=== PATIENT | male | born 1955 | race Caucasian/White ===

== ENCOUNTER → 2018-04-21 | Outpatient (CLI) | payer BC ==
[~2018-04-21] MED LIST: ACET-1138 PO; ASPI-320 PO; B-CO-25 PO; CALC1TAB27 PO; CHOL1000 PO; CLB100 PO; DIPH1LIQ PO; LEVO75TA5 PO; OMEG10007 PO; OMEP20CA9 PO; RXC5 PO; SNK PO; ZYR10 PO
== END | disposition home or self-care (01) ==
LOC: C.CPL 13:09
PROVIDERS: ATTEND Family Medicine
DX: S83.241A Other tear of medial meniscus, current injury, right knee, initial encounter (principal); X58.XXXA Exposure to other specified factors, initial encounter

== ENCOUNTER 2019-06-04 05:08 | Observation (INO) ==
--- NOTE | 2019-05-28 16:29 | PAT Medication Instructions ---
Medication Instructions Date of Service May 28, 2019 Home Medications B-complex with vitamin C [Super B Complex-Vitamin C] 2 tab PO QAM calcium carbonate [Tums] 200 mg PO BID PRN cholecalciferol (vitamin D3) [Vitamin D3] 5,000 unit PO QAM dutasteride 0.5 mg PO QAM levothyroxine 50 mcg PO QAM meloxicam 15 mg PO QAM multivitamin 1 tab PO QAM omeprazole 20 mg PO DAILY PRN tamsulosin 0.4 mg PO HS ASK your surgeon for instructions meloxicam 15 mg PO QAM DO NOT take the morning of surgery B-complex with vitamin C [Super B Complex-Vitamin C] 2 tab PO QAM calcium carbonate [Tums] 200 mg PO BID PRN cholecalciferol (vitamin D3) [Vitamin D3] 5,000 unit PO QAM multivitamin 1 tab PO QAM Take morning of surgery With a small sip of water, OTHERWISE NOTHING TO EAT OR DRINK AFTER MIDNIGHT: dutasteride 0.5 mg PO QAM levothyroxine 50 mcg PO QAM omeprazole 20 mg PO DAILY PRN (if needed) Take evening before surgery calcium carbonate [Tums] 200 mg PO BID PRN (if needed) tamsulosin 0.4 mg PO HS Other Notes If you have any questions please call us at [phone] or [phone] or [phone] or [phone]
--- NOTE | 2019-05-29 09:20 | Anesthesiology Consultation ---
Date of Service May 29, 2019 Assessment & Plan (1) Encounter for pre-operative examination: Chart Review Chart Review: Pending: Refer to Additional Notes / Consult section (pending preop testing (labs, EKG, CXR)) and Patient seen in Pre Admission Testing Teaching & Discussion Pre-Anesthesia Teaching/Discussion Notes: Instructed NPO after midnight before surgery,except medications with 15 cc of water. Medication instructions prov ided according to the PAT guidelines. History Surgery Operation Date: 06/04/19 09:45 Proposed Procedures p Transurethral Resection of Prostate - Rm Miles MD Height/Weight Height: 6 ft 1 in Weight: 121.8 kg Allergies Allergy/AdvReac Type Severity Reaction Status Date / Time No Known Allergies Allergy Verified 05/25/19 11:23 Medications Home Medications Medication Instructions Recorded Confirmed Last Taken B-complex with vitamin C [Super B 2 tab PO QAM 05/25/19 05/25/19 Unknown Complex-Vitamin C] calcium carbonate [Tums] 200 mg PO BID PRN 05/25/19 05/25/19 Unknown cholecalciferol (vitamin D3) 5,000 unit PO QAM 05/25/19 05/25/19 Unknown [Vitamin D3] dutasteride 0.5 mg PO QAM 05/25/19 05/25/19 Unknown levothyroxine 50 mcg PO QAM 05/25/19 05/25/19 Unknown meloxicam 15 mg PO QAM 05/25/19 05/25/19 Unknown multivitamin 1 tab PO QAM 05/25/19 05/25/19 Unknown omeprazole 20 mg PO DAILY PRN 05/25/19 05/25/19 Unknown tamsulosin 0.4 mg PO HS 05/25/19 05/25/19 Unknown Past Medical History Medical History BPH (benign prostatic hyperplasia) GERD (gastroesophageal reflux disease) rare breakthrough Hiatal hernia Hypothyroidism Obesity Osteoarthritis Restless leg syndrome Exercise / Class Metabolic Activity II 4-5 Yardwork/Stairs/Walk up hill Past Family History Family History Father Family hx of colon cancer Grandfather (Paternal) Family hx of colon cancer Past Surgical History Surgical History History of arthroscopy RT KNEE History of cardiac cath 1993/NO STENTS History of colonoscopy History of esophagogastroduodenoscopy (EGD) History of tooth extraction History of total hip arthroplasty LEFT Past Anesthesia History No Hx of Anesthesia Complications and No Family Hx of Anesthesia Complications (limited knowledge of family hx) History of PONV No Hx of PONV and No Hx of Motion Sickness Social History Smoking Status: Former smoker tobacco type: cigarettes and smokeless tobacco Do You Dip or Chew Tobacco: Yes (2 CANS/WEEK- ADVISED NPO AM DOS) Smoking End Date: QUIT 20 YEARS AGO Hx Alcohol Use: Yes Alcohol type: beer alcohol intake frequency: a few times a month Hx Substance Use: No substance use type: does not use Review of Systems Rare reflux breakthrough. Patient denies chest pain, shortness of breath, dyspnea on exertion, cough, wheezing, palpitations. Physical Exam Vital Signs VITALS BP 134/89 P 61 TEMP 97.9 SP02 96%RA RESP 18 PHYSICAL Full neck and c-spine range of motion. Full TMJ range of motion. TMD 2.5 finger breaths Mallampati Score 2 Dentition: several missing teeth including upper front sides, poor dentition, several chipped Lungs: clear throughout to auscultation Cardiac: regular rate and rhythm, no murmurs noted Spine: normal Carotid arteries: negative bruit Extremities: no edema
--- NOTE | 2019-05-29 10:27 | XRay Report ---
XR chest Pre-admission PA/Lat CLINICAL HISTORY: Preoperative evaluation. COMPARISON STUDY: Chest radiograph June 29, 2016. FINDINGS: Lung volumes are normal. Lungs are clear. There is no pneumothorax or pleural effusion. Bor derline cardiomegaly is noted. Mediastinal contours are normal. There is no evidence for pulmonary ed jose alejandro. IMPRESSION: No acute cardiopulmonary findings. Electronically signed by: Josse Hernández M.D. 05/29/2019 10:26 AM
[2019-05-29 11:47] LABS: Basophils # (auto) 0.01 K/uL (0-0.2); Basophils % (auto) 0.1 %; Eosinophils # (auto) 0.14 K/uL (0-0.5); Eosinophils % (auto) 1.8 %; Hematocrit (blood only) 47.6 % (42-52); Hemoglobin 16.5 g/dL (14.0-18.0); Immature Granulocytes # (auto) 0.02 K/uL (0.00-0.02); Immature Granulocytes % (auto) 0.3 %; Lymphocytes # (auto) 1.33 K/uL (1.2-3.4); Lymphocytes % (auto) 17.1 %; Mean Corpuscular Hgb Conc 34.7 g/dL (32-36); Mean Corpuscular Volume 95.2 fL (80-100); Mean Platelet Volume 9.8 fL (7.4-10.4); Monocytes # (auto) 0.46 K/uL (0.11-0.59); Monocytes % (auto) 5.9 %; Neutrophils # (auto) 5.84 K/uL (1.4-6.5); Neutrophils % (auto) 74.8 %; Platelet Count 232 K/uL (130-400); RDW Standard Deviation 44.9 fL (36.4-46.3)
[2019-05-29 11:49] LABS: Appearance Urine Clear (Clear); Bilirubin Urine Negative (Negative); Blood Urine Negative (Negative); Color Urine Dark Yellow; Glucose Urine UA Negative (Negative); Ketones Urine Negative (Negative); Leukocyte Esterase Urine Negative (Negative); Nitrite Urine Negative (Negative); Protein Urine Negative (Negative); Specific Gravity Urine 1.021 (1.000-1.030); Urobilinogen Urine Negative (Negative)
[2019-05-29 11:54] LABS: BUN Creatinine Ratio 18.7 (10-20); Calcium 8.8 mg/dl (8.5-10.1); Est GFR (African American) 90.7; Est GFR (Non-African American) 78.2; Potassium 4.4 mmol/L (3.5-5.1)
[2019-06-04] MEDS ORDERED: LR 15ML/HR IV SCH (06:00)
[2019-06-04] MEDS ORDERED: CIPROFLOXACIN 400 MG/200 ML BAG IV SCH (06:00)
[2019-06-04] MEDS ORDERED: PROPOFOL IV EMULSION 10 MG/ML 20 ML VIAL IV ONE (06:32)
[2019-06-04] MEDS ORDERED: ONDANSETRON INJ 2 MG/ML 2 ML VIAL ONE (06:32)
[2019-06-04] MEDS ORDERED: LIDOCAINE HCL 2% 2 ML VIAL/AMP(20MG/ML) INFIL ONE (06:32)
[2019-06-04] MEDS ORDERED: MIDAZOLAM HCL 1 MG/ML 2ML VIAL ONE (06:32)
[2019-06-04] MEDS ORDERED: fentaNYL citrate 100 MCG/2 ML VIAL ONE (06:32)
--- NOTE | 2019-06-04 07:14 | History & Physical Bridge Note ---
Date of Service June 04, 2019 History & Physical Bridge Note I have examined the patient, reviewed the History & Physical and in the interval since the performance of the History & Physical I have noted the following changes of clinical significance: no changes noted
[2019-06-04] MEDS ORDERED: ONDANSETRON INJ 2 MG/ML 2 ML VIAL IV PRN ×2 (07:17→09:10)
[2019-06-04] MEDS ORDERED: fentaNYL citrate 100 MCG/2 ML VIAL IV PRN (07:17)
[2019-06-04] MEDS ORDERED: HYDROmorphone INJ 2 MG/ML SYR/VIAL IV PRN (07:17)
[2019-06-04] MEDS ORDERED: ePHEDrine sulfate 50 MG/ML AMP IV PRN (07:17)
[2019-06-04] MEDS ORDERED: METOCLOPRAMIDE HCL INJ 5 MG/ML 2 ML VIAL IV PRN (07:17)
[2019-06-04] MEDS ORDERED: ATROPINE SULFATE 0.1 MG/ML 10ML SYR IV PRN (07:17)
[2019-06-04] MEDS ORDERED: PROMETHAZINE HCL 12.5 MG in SODIUM CHLORIDE 0.9% 50 ML IV PRN (07:17)
--- NOTE | 2019-06-04 08:24 | Operative Report ---
Post Operative Report Pre & Post Diagnosis Operation Date: 06/04/19 07:15 Pre-Op Diagnosis: Benign Prostatic Hyperplasia with Urinary Obstruct Post-Op Diagnosis: Benign Prostatic Hyperplasia with Urinary Obstruct Procedure Operation Date: 06/04/19 07:15 Actual Procedures p Transurethral Resection of Prostate, Cystoscopy (Not Applicable) - Rm Miles MD Surgeon Karl Miles MD Drag Sawyer none Estimated Blood Loss 5 Findings Consistent with Post-Op Diagnosis Specimens none Description of Procedure The patient was identified in the preopertive holding area, appropriate informed consents were reviewed and completed and the patient was transferred to the operative suite. Upon arrival, appropriate antibiotics and anesthesia were administered and the patient was placed in dorsal lithotomy position and prepped and draped in sterile fashion. To begin the case I passed a 27 Burkinan resectoscope and 30 degree lens with visual pig machine operator. Inspection revealed lateral lobe hypertrophy, high bladder neck and small intravesical component of the prostate. Ureteral orifices were identified within the bladder in orthotopic position. There were no mucosal abnormalities of the bladder. Following my inspection I exchanged the visual pig machine operator for resecting element using a button electrode. I began by making incisions in the bladder neck at 5 and 7:00 with care to avoid encroachment upon the UOs. I then resected the tissue between these 2 incisions flattening the bladder neck. This drastically improve the appearance of the prostate. I then completed my resection by trimming the left and right lateral lobes until he had a widely patent prostatic fossa. The anterior aspect of the prostate was somewhat redundant and drooping into our field and I resected that area before concluding the case. Hemostasis was excellent. A 20 Bur[place]an [place] catheter was inserted without difficulty. Patient was extubated and taken to the PACU in stable condition. There were no complications. I attest to the content of the Intraoperative Record and any orders documented therein. Any exceptions are noted below.
--- NOTE | 2019-06-04 08:58 | Anesthesiology Progress Note ---
Date of Service June 04, 2019 Anesthesia Post Procedure Vital Signs Vital Signs: Temp Pulse Pulse Resp BP BP Pulse Ox 06/04/19 08:50 36.3 C L 66 17 129/96 96 06/04/19 08:40 69 18 144/99 H 98 06/04/19 08:30 73 18 132/99 97 06/04/19 08:20 71 18 136/98 99 06/04/19 08:12 36.2 C L 75 18 127/97 93 06/04/19 05:41 36.6 C 76 18 139/98 96 Pain Intensity Bilateral Knee: Pain Intensity: 1 Transfer of Care Handoff Completed per policy Notes Mental Status: alert / awake / arousable and participated in evaluation Patient Amnestic to Procedure: Yes Nausea / Vomiting: adequately controlled Pain: adequately controlled Airway Patency, RR, SpO2: stable & adequate BP & HR: stable & adequate Hydration State: stable & adequate Anesthetic Complications: no major complications apparent
[2019-06-04] MEDS ORDERED: CALCIUM CARBONATE 500 MG CHEWABLE TAB PO PRN (09:10)
[2019-06-04] MEDS ORDERED: MoRPHine SULFATE 10 MG/ML CARP/VIAL IV PRN (09:10)
[2019-06-04] MEDS ORDERED: ACETAMINOPHEN 1,000 MG/100 ML VIAL IV PRN (09:10)
[2019-06-04] MEDS ORDERED: OXYCODONE HCL IR 5 MG TAB (IMMEDIATE RELEASE) PO PRN ×2 (09:10)
[2019-06-04] MEDS ORDERED: MoRPHine SULFATE 4 MG/ML 1 ML CARP\\VIAL IV PRN (09:10)
[2019-06-04] MEDS: LACTATED RINGER'S 1,000 ML IV SCH (09:38)
[2019-06-04] MEDS: MULTIVITAMIN TAB PO SCH (11:11)
[2019-06-04] MEDS: PANTOprazole 40 MG TAB PO SCH (11:11)
[2019-06-04] MEDS: LEVOTHYROXINE SODIUM 50 MCG TABLET PO SCH (11:12)
[2019-06-04] MEDS: DOCUSATE SODIUM 100 MG CAP PO SCH ×2 (11:12→20:56)
[2019-06-04] MEDS: CHOLECALCIFEROL 1,000 UNITS TAB PO SCH (11:12)
[2019-06-04] MEDS: VITAMIN B COMPLEX TAB PO SCH (11:12)
[2019-06-04] MEDS: DUTASTERIDE 0.5 MG SCH (17:06)
[2019-06-04] MEDS: CIPROFLOXACIN 400 MG/200 ML BAG IV SCH (19:57)
[2019-06-04] MEDS ORDERED: TAMSULOSIN HCL 0.4 MG CAP PO SCH (21:00)
[2019-06-05] MEDS: DUTASTERIDE 0.5 MG SCH ×2 (00:17→08:24)
[2019-06-05] MEDS: LACTATED RINGER'S 1,000 ML IV SCH (02:31)
[2019-06-05] MEDS: LEVOTHYROXINE SODIUM 50 MCG TABLET PO SCH (05:39)
[2019-06-05 05:58] LABS: Basophils # (auto) 0.01 K/uL (0-0.2); Basophils % (auto) 0.1 %; Eosinophils # (auto) 0.18 K/uL (0-0.5); Hematocrit (blood only) 44.3 % (42-52); Hemoglobin 15.3 g/dL (14.0-18.0); Immature Granulocytes # (auto) 0.02 K/uL (0.00-0.02); Immature Granulocytes % (auto) 0.2 %; Lymphocytes # (auto) 1.18 K/uL (1.2-3.4); Lymphocytes % (auto) 13.4 %; Mean Corpuscular Hemoglobin 32.4 pg (25-34); Mean Corpuscular Hgb Conc 34.5 g/dL (32-36); Mean Corpuscular Volume 93.9 fL (80-100); Mean Platelet Volume 9.5 fL (7.4-10.4); Monocytes # (auto) 0.67 K/uL (0.11-0.59); Monocytes % (auto) 7.6 %; Neutrophils # (auto) 6.73 K/uL (1.4-6.5); Neutrophils % (auto) 76.7 %; Platelet Count 190 K/uL (130-400); RDW Coefficient of Variation 12.8 % (11.5-14.5); RDW Standard Deviation 44.1 fL (36.4-46.3); Red Blood Count 4.72 M/uL (4.7-6.1); White Blood Count 8.79 K/uL (4.8-10.8)
[2019-06-05] MEDS: CIPROFLOXACIN 400 MG/200 ML BAG IV SCH (06:04)
[2019-06-05 06:28] LABS: BUN Creatinine Ratio 14.3 (10-20); Calcium 8.3 mg/dl (8.5-10.1); Creatinine Clr Calc Pharmacy 92.5 ml/min; Est GFR (African American) 81.8; Est GFR (Non-African American) 70.6; Potassium 4.1 mmol/L (3.5-5.1)
[2019-06-05] MEDS: MULTIVITAMIN TAB PO SCH (08:24)
[2019-06-05] MEDS: PANTOprazole 40 MG TAB PO SCH (08:25)
[2019-06-05] MEDS: DOCUSATE SODIUM 100 MG CAP PO SCH (08:25)
[2019-06-05] MEDS: CHOLECALCIFEROL 1,000 UNITS TAB PO SCH (08:26)
[2019-06-05] MEDS: VITAMIN B COMPLEX TAB PO SCH (08:27)
--- NOTE | 2019-06-05 08:57 | Anesthesiology Progress Note ---
Date of Service June 05, 2019 Anesthesia Post Procedure Vital Signs Vital Signs: Temp Pulse Pulse Resp BP Pulse Ox 06/05/19 07:06 36.9 C 86 18 151/92 H 95 06/05/19 02:31 36.8 C 66 18 104/66 96 06/04/19 22:50 36.9 C 68 16 117/71 96 06/04/19 19:43 36.7 C 69 18 119/81 95 06/04/19 15:42 36.5 C 66 20 133/91 94 06/04/19 09:10 35.9 C L 68 18 144/92 H 99 06/04/19 09:00 68 16 135/94 97 Pain Intensity Bilateral Knee: Pain Intensity: 0 Medial: Pain Intensity: 0 Notes Mental Status: alert / awake / arousable Patient Amnestic to Procedure: Yes Nausea / Vomiting: adequately controlled Pain: adequately controlled Airway Patency, RR, SpO2: stable & adequate BP & HR: stable & adequate Hydration State: stable & adequate Anesthetic Complications: no major complications apparent
[2019-06-05] MEDS ORDERED: MELOXICAM 7.5 MG TAB PO SCH (09:15)
[2019-06-05] MEDS ORDERED: CALCIUM CARBONATE 500 MG CHEWABLE TAB PO PRN (09:15)
--- NOTE | 2019-06-05 10:12 | Urology Progress Note ---
Date of Service June 05, 2019 Assessment & Plan (1) Urinary retention due to benign prostatic hyperplasia: 64yo M POD #1 s/p TURP with Dr. Miles Evaluated by Dr. Miles this AM, rechecked by myself at this time. Catheter removed per order, pt voiding spontaneously - light pink, no clots. Denies dysuria, or LUTS. Ambulating spontaneously. Okay to d/c fluids Okay to discharge home with antibiotics. Expected clinical course reviewed with patient, he verbalizes good understa nding. Please see additional comments per my attending, if indicated. Agree with aboveuneventful night, urine clear, no painvoiding trial now and DC home after void Subjective 64yo M POD #1 s/p TURP with Dr. Miles Uneventful night Tolerating PO without difficulty Pain controlled with PO options Ambulating independently, oob to chair. Denies n/v/f/c. Denies chest pain or SOB. Review of Systems Review of Systems: All systems reviewed & are unremarkable except as noted in HPI & below Physical Exam Constitutional: no acute distress and not ill appearing Eyes: no nystagmus ENMT: Ears: no hearing impairment Neck: trachea midline Respiratory: no respiratory distress and no cough Cardiovascular: Vessels: no JVD Chest (Breasts): Chest: normal inspection of chest Gastrointestinal (Abdomen): Inspection/Auscultation: abdomen not distended and no abdominal edema Percussion/Palpation: abdomen soft; abdomen nontender Musculoskeletal: Head/Neck/Chest: normocephalic and head atraumatic Skin: no rashes, warm and dry Neurologic: awake; not confused and not obtunded Psychiatric: Orientation: alert and oriented x 3 Eye Contact: good eye contact Affect: no depressed affect Genitourinary: bladder normal to inspection; no CVA tenderness spontaneous voiding - urine is light pink, no clots Lymphatic: no lymphadenopathy and no lymphedema Results & Data Vital Signs (Past 12 Hours) Vital Signs Temp Pulse Resp BP Pulse Ox 06/05/19 07:06 36.9 C 86 18 151/92 H 95 06/05/19 02:31 36.8 C 66 18 104/66 96 06/04/19 22:50 36.9 C 68 16 117/71 96
--- NOTE | 2019-06-05 10:17 | Discharge Summary ---
Date of Service June 05, 2019 Admission HPI Per Admitting Provider see H&P Principal Diagnosis BPH with urinary obstruction Discharge Data Allergies Allergy/AdvReac Type Severity Reaction Status Date / Time No Known Allergies Allergy Verified 06/04/19 05:37 Procedures Performed Operation Date: 06/04/19 07:15 Actual Procedures p Transurethral Resection of Prostate, Cystoscopy (Not Applicable) - Rm Miles MD Hospital Course (1) Urinary retention due to benign prostatic hyperplasia: 64yo M admitted for TURP with Dr. Miles - no issues with the procedure or post op recovery - urine pink, no clots - passed a voiding trial - pain controlled Okay to discharge home with antibiotics. Expected clinical course reviewed. Okay to resume all other home medications. Continue dutasteride and flomax until followup as outpatient. Total Time Total Time Spent Total Time Spent (In Minutes): 15 Total Time Includes: Examination of the Patient, Discharge Planning, Medication Reconciliation and Communication With Other Providers Discharge Plan Discharge Items Patient Disposition: Home - Self-Care Reason For Visit: Benign Prostatic Hyperplasia with Urinary Obstruct Discharge Diagnosis: BPH with urinary obstruct Condition on Discharge: Good Activity: Per Instructions section Activity Comment: walking and stairs in your home are okay Lifting: No more than 10 pounds Bathing Comment: okay to shower tomorrow, avoid tub baths/hot tubs/soaking Sexual Activity: Wait until after follow-up appointment Exercise/Sports: Wait until after follow-up appointment Non-emergency contact: Urologist Call non-emergency contact if: your symptoms worsen, your pain is not controlled, your temperature is above 101, your wound has increased redness, your wound has increased drainage and your wound pain has increased Follow-up/Referrals: Rm Miles MD [Physician] - 06/21/19 9:15 am ([place] [facility]) Jerry Torres [Primary Care Provider] - Diet: Regular Addtl Attending Provider Instructions: Please take all medications as prescribed and keep all follow-ups as scheduled. Please call our office at [phone] with any questions, concerns or need to reschedule appointments for any reason. We are happy to assist you. Continue dutasteride and flomax until your followup with Dr. Miles. Tips for your recovery at home: Dont be alarmed by brownish or reddish blood or clots in your urine. This is a result of the procedure. This may occur off and on for weeks to months after the procedure but should continue to improve. Drink plenty of fluids during the day (enough to keep your urine very light colored). This will help keep a healthy flow of urine. Do not lift >25 lbs until your followup Avoid constipation. Please use a stool softener (Colace) for the first two weeks after your procedure Be sure to finish the antibiotics as prescribed. If you go home with a catheter, please wash tubing where it enters your body twice daily with mild soap (Dove or Dial). Once your catheter is removed, expect some blood in your urine and some burning when you urinate. You should have an appointment to have this removed, if you do not please call our office to arrange. When [place] [facility] [place] [facility] [place] [phone]: Your urine contains heavy blood clots You are constantly leaking urine Fever of 101F or higher, chills, nausea, or vomiting Your pain is not relieved with medication Pending Studies at Discharge: No Stand-Alone Forms: My [facility] Medications and DC Order Prescriptions: New ciprofloxacin HCl 500 mg tablet 500 mg PO BID 3 Days Qty: 6 RF: 0 Continued meloxicam 15 mg Tablet 15 mg PO QAM RF: 0 tamsulosin 0.4 mg Capsule 0.4 mg PO HS RF: 0 levothyroxine 50 mcg Tablet 50 mcg PO QAM RF: 0 calcium carbonate [Tums] 200 mg calcium (500 mg) Tablet,Chewable 200 mg PO BID PRN (Reason: Indigestion) RF: 0 B-complex with vitamin C [Super B Complex-Vitamin C] Tablet 1 tab PO QAM RF: 0 dutasteride 0.5 mg Capsule 0.5 mg PO QAM RF: 0 omeprazole 20 mg Tablet,Delayed Release (Dr/Ec) 20 mg PO DAILY PRN (Reason: Indigestion) RF: 0 cholecalciferol (vitamin D3) [Vitamin D3] 5,000 unit Tablet 5,000 unit PO QAM RF: 0 multivitamin Tablet 1 tab PO QAM RF: 0 Discharge Orders: Discharge Order (Routine); Ordered 06/05/19 Ordered By: Diana Escobar Admission Data Admit Date/Time: 06/04/19 07:58 Attending Provider: Rm Miles Admit Provider: Rm Miles Primary Care Provider: Jerry Torres
== END 2019-06-05 11:13 | disposition home or self-care (01) ==
LOC: 3N 05:08 → ASU 05:08